=== PATIENT | female | born 1985 | race Caucasian/White ===

== ENCOUNTER 2023-10-13 00:27 | Observation (INO) | payer OTHER, SELFPAY ==
[2023-10-13] VITALS (17 sets, daily range): BP systolic 93–130; BP diastolic 53–84; PULSE 49–78; RESP 12–18; TEMP 36.5–37.1; O2SAT 97–100; BMI 20.5; BMI 21.6
--- NOTE | 2023-10-13 | PATH_ITS ---
[facility] Accession Number: [id number] No. of containers..01 Tissue . 01 Material submitted: . appendix - APPENDIX . 01 Diagnosis: APPENDIX, APPENDECTOMY: Acute suppurative appendicitis with perforation and serositis. Negative for dysplasia and malignancy. [facility] 10/16/2023 1014 Local . 01 Electronically signed: . Jonna Hanson MD, Pathologist NPI- [id number] . 01 Gross description: . Received in formalin, labeled with two identifiers and appendix, is a vermiform appendix measuring 9.2 cm in length and up to 1.2 cm in diameter with red-brown, roughened serosa and adherent material consistent with exudate. A full-thickness defect is identified measuring 0.7 cm in greatest dimension. The mesoappendix extends out to 1.7 cm. The margin is inked blue. Sectioning reveals the lumen to range from 0.2 cm to 0.4 cm in diameter with red-brown semisolid material. The hernandes average 0.4 cm thick with no lesions grossly identified. Supervisor Cellars sections to include the margin, one-half of the bisected distal tip, and cross section with area of defect are submitted in cassette A1. ([id number]) /FRR 10/14/2023 1701 Local . 01 Pathologist provided ICD-10: K35.80 . 01 CPT . 857469 Specimen Comment: A courtesy copy of this report has been sent to [phone] Performed at: [address] [facility] [address] [address], [place], [place] [id number] MD Adam Sharif MD Phone: [phone]
--- NOTE | 2023-10-13 01:33 | ED_ITS ---
HPI - Female Genitourinary General Chief complaint: Urogenital-Female Stated complaint: kidney pain Time Seen by Provider: 10/13/23 01:33 Source: patient Mode of arrival: Ambulatory History of Present Illness HPI Narrative: Patient is a 38-year-old female presenting today with abdominal pain. She reports that she was having some gastroenteritis like symptoms nausea vomiting diarrhea earlier in the week. She was given Cipro thought to be for traveler's diarrhea. She reports that diarrhea has improved however she has pretty intense abdominal pain. And now she reports pretty severe kidney pain as well. No painful frequent urination. She has not actually had fever. No other symptoms. Patient History Substance Use Type: does not use Exam Initial Vital Signs Initial Vital Signs: Vital Signs Temperature 98.4 F 10/13/23 00:36 Pulse Rate 59 L 10/13/23 00:36 Respiratory Rate 18 10/13/23 00:36 Blood Pressure 112/61 10/13/23 00:36 Pulse Oximetry 100 10/13/23 00:36 Oxygen Delivery Method Room Air 10/13/23 00:36 GENERAL: Alert 38-year-old female appears to not feel well and in no acute distress. HEENT: Head atraumatic,EOMI, pupils reactive, face symmetric, moist mucous membranes CARDIOVASCULAR: Regular rate and rhythm without murmurs, rubs or gallops. RESPIRATORY: Breath sounds equal bilaterally, no wheezes rales or rhonchi. ABDOMEN: Soft, tender across lower abdomen both right and left size having bilateral rebound mild guarding : No CVA tenderness EXTREMITIES: Normal range of motion, no clubbing or edema. Neurovascularly intact NEUROLOGICAL: Alert and oriented x4.Normal gait and speech. Cranial nerves II through XII grossly intact. SKIN: Warm, dry, no laceration, no petechiae, no rashes or lesions. Course Orders Ordered: ED Orders 10/13/23 01:00 Complete Blood Count AUTO DIFF Stat Comprehensive Metabolic Panel Stat Lactate (Lactic Acid) Stat Lipase Stat 10/13/23 01:38 CT abdomen pelvis w con Stat Ondansetron HCl (Ondansetron 4 Mg/2 Ml Inj) 4 mg IV NOW PRN PRN Reason: Nausea And Vomiting Ondansetron HCl (Ondansetron 4 Mg Odt) 4 mg SL NOW PRN PRN Reason: Nausea And Vomiting Discontinued Medications Sodium Chloride (Normal Saline 0.9%) 1,000 mls @ 1,000 mls/hr IV BOLUS ONE Stop: 10/13/23 02:37 Last Infusion: 10/13/23 03:33 Dose: Infused Documented By: Admin: 10/13/23 02:22 Dose: 1,000 mls/hr Documented By: ERON Piperacillin Sod/Tazobactam (Sod 4.5 gm/ Sodium Chloride) 100 mls @ 200 mls/hr IV NOW ONE Stop: 10/13/23 03:23 Last Infusion: 10/13/23 04:05 Dose: Infused Documented By: Admin: 10/13/23 03:33 Dose: 200 mls/hr Documented By: ERON Ketorolac Tromethamine (Ketorolac 30 Mg/Ml Vial) 30 mg IV NOW ONE Stop: 10/13/23 01:39 Last Admin: 10/13/23 02:20 Dose: 30 mg Documented By: ERON Ondansetron HCl (Ondansetron 4 Mg/2 Ml Inj) 4 mg IV NOW ONE Stop: 10/13/23 01:39 Last Admin: 10/13/23 02:21 Dose: Not Given Documented By: ERON Vital Signs Vital signs: Vital Signs - 8 hr 10/13/23 00:36 Temperature 98.4 F Pulse Rate 59 L Respiratory Rate 18 Blood Pressure 112/61 Pulse Oximetry 100 Oxygen Delivery Method Room Air MDM - Female Genitourinary Lab Data 10/13/23 01:00 10/13/23 01:00 Labs: Lab Results 10/13/23 Range/Units 01:00 WBC 8.1 (4.5-11.0) X10^3/uL RBC 3.98 L (4.0-5.2) X10^6/uL Hgb 12.1 (12.0-16.0) g/dL Hct 35.3 L (36-46) % MCV 88.7 (80-100) fL MCH 30.4 (26-34) PG MCHC 34.2 (30-36) % RDW 13.0 (11.6-14.8) % Plt Count 245 (150-400) X10^3/uL Neut % (Auto) 67.4 (50-75) % Lymph % (Auto) 22.1 L (25-40) % Steele % (Auto) 8.3 (3-14) % Eos % (Auto) 1.9 L (2-4) % Baso % (Auto) 0.3 (0-2) % Neut # (Auto) 5500 (7459-7895) /uL Lymph # (Auto) 1800 (8687-9690) /uL Steele # (Auto) 700 (0-900) /uL Eos # (Auto) 200 (0-450) /uL Baso # (Auto) 0 (0-100) /uL Sodium 131 L (137-145) mmol/L Potassium 3.7 (3.4-5.1) mmol/L Chloride 101 (98-107) mmol/L Carbon Dioxide 26 (22-32) mmol/L BUN 9 (7-17) mg/dL Creatinine 0.85 (0.52-1.04) mg/dL Estimated GFR > 60 (>60) mL/min BUN/Creatinine Ratio 10.6 (6-22) Glucose 113 H (70-100) mg/dL Lactate 0.8 (0.7-2.1) mmol/L Calcium 9.3 (8.4-10.2) mg/dL Total Bilirubin 1.1 (0.2-1.3) mg/dL AST 19 (14-36) IU/L ALT 11 (<35) IU/L Alkaline Phosphatase 41 (38-126) U/L Total Protein 7.2 (6.3-8.2) g/dL Albumin 4.1 (3.5-5.0) g/dL Globulin 3.1 (1.7-4.1) g/dL Albumin/Globulin Ratio 1.3 (1.0-2.8) Lipase 59 (23-300) U/L Urine Dip Bedside Urine Glucose Negative Bedside Urine Bilirubin - Negative Bedside Urine Ketone - Negative Urine Specific [place] 1.010 Bedside Urine Occult Blood - Negative Bedside Urine pH 6.0 Bedside Urine Urobilinogen - Negative Bedside Urine Nitrite - Negative Bedside Urine Leukocytes - Negative Esterase Imaging Data CT scan - abdomen/pelvis: Radiologist's Impression: Preliminary report findings compatible with acute appendicitis. No periappendiceal focal drainable collection or pneumoperitoneum. IUD within uterus which appears malpositioned with side prongs penetrating the myometrium. Recommend gynecologic consulted he chin with pelvic ultrasound MDM Narrative Medical decision making narrative: Patient is a healthy 38-year-old female who presents today with abdominal pain and discomfort ongoing for the last. He has had some nausea vomiting got better and now she feels like she is pain in her kidneys. No painful frequent urination. Urinalysis is negative Blood work 8.1 hemoglobin 12.1 hematocrit 35.3 platelets 245 No change electrolytes creatinine is stable at 0.85 glucose is 113 Bilirubin AST and ALT are within normal limits lipase is negative CT does show acute appendicitis I did discuss options with patient in regards to antibiotic conservative management versus surgery. They are leaning more towards surgery. She reports that they are leaving next week to go to [place] for then 3-[address] Rivera updated on patient's symptoms and test results along with patient wishes of having surgery Discharge Plan Departure Patient Disposition: Admitted as Observation Clinical Impression: Acute appendicitis Admit Date/Time: 10/13/23 03:25 Admit Provider: Samuel Rivera
--- NOTE | 2023-10-13 01:38 | DI.CT.S_ITS ---
PROCEDURE: CT ABDOMEN PELVIS W CON INDICATIONS: Lower abdominal pain [id number] TECHNIQUE: After the administration of intravenous contrast, axial sections acquired from the lung bases to the pubic symphysis. Coronal and sagittal reformats were performed. For radiation dose reduction, the following was used: automated exposure control, adjustment of mA and/or kV according to patient size. COMPARISON: None. FINDINGS: Image quality: Diagnostic. Lower Chest: No significant findings. ABDOMEN: Liver: No solid mass. Gallbladder: No radiopaque gallstones or wall thickening. Biliary ducts: No biliary dilation. Pancreas: No ductal dilation. Spleen: Size is within normal limits. Adrenal Glands: No adrenal nodules. Kidneys and Ureters: No hydronephrosis. No solid mass. No complex renal cystic lesion which requires follow up. Stomach and Bowel: The appendix is dilated, with a diffusely thickened wall. A short segment of the wall demonstrates decreased enhancement. No adjacent abscess. Peritoneum: No abnormal intraperitoneal fluid. No free air. Ventral Wall: No significant ventral hernia. Abdominal Nodes: No retroperitoneal or mesenteric adenopathy by size criteria. Vessels: Aorta and inferior vena cava are normal in size. PELVIS: Pelvic Organs: IUD is improperly positioned within the endometrium, with the arms extending into the myometrium. Bladder: No bladder wall thickening, accounting for underdistention. Pelvic Nodes: No enlarged lymph nodes. Miscellaneous: No inguinal hernias are seen. Bones: No aggressive osseous abnormality. IMPRESSION: Non perforated acute appendicitis. IUD is improperly positioned. Recommend replacement. Agree with preliminary report. Dictated by: Amaury Melgar M.D. on 10/13/2023 at 8:03 Approved by: Amaury Melgar M.D. on 10/13/2023 at 8:06
[2023-10-13 02:03] LABS: Alanine Aminotransferase 11 IU/L (<35); Albumin 4.1 g/dL (3.5-5.0); Albumin Globulin Ratio 1.3 (1.0-2.8); Alkaline Phosphatase 41 U/L (38-126); Aspartate Aminotransferase 19 IU/L (14-36); BUN Creatinine Ratio 10.6 (6-22); Bilirubin Total 1.1 mg/dL (0.2-1.3); Blood Urea Nitrogen 9 mg/dL (7-17); Calcium 9.3 mg/dL (8.4-10.2); Carbon Dioxide 26 mmol/L (22-32); Chloride 101 mmol/L (98-107); Estimated Glomerular Filt Rate > 60 mL/min (>60); Globulin 3.1 g/dL (1.7-4.1); Glucose 113 mg/dL (70-100); HEMOLYSIS < 15 (0-50); Lipase 59 U/L (23-300); Potassium 3.7 mmol/L (3.4-5.1); Sodium 131 mmol/L (137-145); Total Protein 7.2 g/dL (6.3-8.2)
[2023-10-13 02:04] LABS: Lactate (Lactic Acid) 0.8 mmol/L (0.7-2.1)
[2023-10-13 02:06] LABS: Add Manual Diff / Slide Review NO; Basophils Absolute Auto 0 /uL (0-100); Basophils Percent Auto 0.3 % (0-2); Eosinophils Absolute Auto 200 /uL (0-450); Eosinophils Percent Auto 1.9 % (2-4); Hematocrit 35.3 % (36-46); Hemoglobin 12.1 g/dL (12.0-16.0); Lymphocytes Absolute Auto 1800 /uL (1100-4500); Lymphocytes Percent Auto 22.1 % (25-40); Mean Corpuscular HGB Conc 34.2 % (30-36); Mean Corpuscular Hemoglobin 30.4 PG (26-34); Mean Corpuscular Volume 88.7 fL (80-100); Monocytes Absolute Auto 700 /uL (0-900); Monocytes Percent Auto 8.3 % (3-14); Neutrophils Absolute Auto 5500 /uL (1500-7000); Neutrophils Percent Auto 67.4 % (50-75); Platelet Count 245 X10^3/uL (150-400); Red Blood Cell Count 3.98 X10^6/uL (4.0-5.2); White Blood Cell Count 8.1 X10^3/uL (4.5-11.0)
[2023-10-13] MEDS: KETOROLAC 30 MG/ML VIAL IV ×2 (02:20→17:42)
[2023-10-13] MEDS: SODIUM CHLORIDE 0.9% 1,000 ML 1000 ML IV (02:22)
[2023-10-13] MEDS: PIPERACILLIN/TAZO 4.5 GM in SODIUM CHLORIDE 0.9% 100 ML IV (03:33)
[2023-10-13] MEDS: DEXTROSE 5%-0.45% NS 1,000 ML 100 ML IV (08:58)
[2023-10-13] MEDS: PIPERACILLIN/TAZO 3.375 GM in SODIUM CHLORIDE 0.9% 100 ML IV ×2 (08:58→16:28)
--- NOTE | 2023-10-13 10:30 | CM.DANOTE ---
Discharge Planning/Care Management CM Discharge Assessment Start: 10/13/23 08:56 Freq: Status: Active Protocol: Document 10/13/23 10:25 TASHA (Rec: 10/13/23 10:30 TASHA [id number]) Discharge Planning Assessment Assigned Sandblaster Paint Sprayer SOCORRO Garcia DPOA/Assigned Designee Name Deric Goodman, spouse Contact Information [phone] Advance Directives? No History Provided By Patient,Significant Other, Medical Record Prior Living Arrangements House Household Members spouse,children Type of transporation used prior to Drives own vehicle admit Independent with ADL's Yes Is patient alert and oriented? Yes Barriers to Discharge No Comment Overall healthy 38 yo F, visiting from out of state. Indp and active at baseline, scheduled for lap appy today with Dr Rivera. No needs anticipated from this CM team. Supportive spouse at bedside and available to assist patient throughout her recovery. Discharge Plan Home Transportation Arrangement Spouse Referrals Initiated None needed
--- NOTE | 2023-10-13 13:53 | P.HP_ITS ---
History of Present Illness History of Present Illness Date Patient Seen: 10/13/23 Time Patient Seen: 13:53 Chief complaint: kidney pain Narrative: Ms. Goodman is a healthy 38-year-old woman admitted to [facility] with acute appendicitis. Several days of vague abdominal discomfort presumed to be gastroenteritis. She was started on a course of ciprofloxacin but failed to improve. Pain became clearly lower abdominal more intense in nature and she presented to the hospital yesterday for further evaluation. Upon arrival afebrile, without leukocytosis, CT abdomen pelvis demonstrates an inflamed dilated appendix without abscess. No prior abdominal surgery. No family history of anesthetic or bleeding complication [facility] Social History household members: spouse and children Smoking Status: Never smoker Meds Home Medications and Allergies Home Medications Medication Instructions Recorded Confirmed Type No Known Home Medications 10/13/23 10/13/23 History Allergies Allergy/AdvReac Type Severity Reaction Status Date / Time codeine AdvReac Vomiting Verified 10/13/23 04:32 Exam Vital Signs (past 8 hours): - 10/13/23 07:58 10/13/23 08:00 10/13/23 11:58 Temperature 98.0 F Pulse Rate 62 Respiratory Rate 18 Blood Pressure 95/53 L Pulse Oximetry 99 100 97 Oxygen Delivery Method Room Air Room Air Oxygen Flow Rate 10/13/23 12:00 Temperature 97.9 F Pulse Rate 73 Respiratory Rate 18 Blood Pressure 93/56 L Pulse Oximetry 100 Oxygen Delivery Method Oxygen Flow Rate 0 Oxygen Delivery Method Room Air Oxygen Flow Rate 0 Narrative Exam Narrative: General adult woman alert oriented no acute distress Chest nonlabored respiration Abdomen tender right and lower left quadrant no peritonitis Extremities warm well perfused Objective Labs 10/13/23 01:00 10/13/23 01:00 Labs: Laboratory Results - last 24 hr 10/13/23 01:00 WBC 8.1 RBC 3.98 L Hgb 12.1 Hct 35.3 L MCV 88.7 MCH 30.4 MCHC 34.2 RDW 13.0 Plt Count 245 Neut % (Auto) 67.4 Lymph % (Auto) 22.1 L Edgar % (Auto) 8.3 Eos % (Auto) 1.9 L Baso % (Auto) 0.3 Neut # (Auto) 5500 Lymph # (Auto) 1800 Edgar # (Auto) 700 Eos # (Auto) 200 Baso # (Auto) 0 Sodium 131 L Potassium 3.7 Chloride 101 Carbon Dioxide 26 BUN 9 Creatinine 0.85 Estimated GFR > 60 BUN/Creatinine Ratio 10.6 Glucose 113 H Lactate 0.8 Calcium 9.3 Total Bilirubin 1.1 AST 19 ALT 11 Alkaline Phosphatase 41 Total Protein 7.2 Albumin 4.1 Globulin 3.1 Albumin/Globulin Ratio 1.3 Lipase 59 Assessment & Plan Assessment and plan (1) Acute appendicitis: Problem details: 38-year-old woman with symptoms and radiographic findings consistent with acute uncomplicated appendicitis. We discussed the management of appendicitis including both antibiotic therapy only versus appendectomy. We reviewed the operative risks including hemorrhage, infection, damage to surrounding structure, version open. Following discussion her preference is to proceed with surgery. Overview of a laparoscopic appendectomy was reviewed. Questions have been answered and she is in agreement with this plan. NPO IV fluids IV Zosyn Laparoscopic appendectomy Qualifiers: Acute appendicitis type: unspecified acute appendicitis type Qualified Code(s): K35.80 - Unspecified acute appendicitis Status: Acute Time-Based Coding :: [TOTAL MINUTES] spent with patient and on the chart (including review of chart, obtaining history, exam, reviewing outside data, placing orders, documenting exam and treatment plan, and counseling patient) on [DATE].
[2023-10-13] MEDS: LACTATED RINGERS 1,000 ML 42 ML IV (15:39)
[2023-10-13] MEDS: SCOPOLAMINE 1 PATCH TOP (16:01)
--- NOTE | 2023-10-13 16:40 | SUR.OPER ---
Supine on padded OR bed, head on pillow, right arm secured on padded arm board at <90 degrees abduction,left arm padded and tucked, legs uncrossed, safety belt at thigh, tape over blanket over lower legs.
--- NOTE | 2023-10-13 17:11 | PM.OP.1 ---
Operative Date/Time/Diagnoses Date of procedure: 10/13/23 Time of procedure: 17:11 Pre-op diagnosis: Acute appendicitis Post-op diagnosis: same Procedure & Clinicians Procedure: Laparoscopic appendectomy Same procedure as scheduled: Yes Indications: 38-year-old woman symptoms and radiographic findings consistent with acute uncomplicated appendicitis. Surgeon: Samuel Rivera Click Yes if Unassisted: Yes Anesthesia Type: General Operative Notes Findings: Acute non perforated appendicitis Simple/serous fluid within the pelvis 100 mL Specimen(s): other (Appendix) Estimated Blood Loss (mL): 20 Procedure in detail: Patient was brought to the operating room placed supine on the table. Bilateral lower extremity compression devices were applied. Anesthesia was induced and they intubated with an endotracheal tube. They received 3.375 g of Zosyn prior to skin incision. The left arm was tucked and appropriately padded. They were prepped and draped in sterile fashion. Time-out was performed. An infraumbilical incision was made the umbilical stalk was grasped and elevated and incision was made and the abdomen was entered atraumatically. A 12 mm balloon trocar was then placed through the incision and pneumoperitoneum of 14 mm Hg was established. The scope was then inserted and the abdomen inspected, there was no evidence of injury upon entry. Two 5 mm ports were placed under direct visualization, one in the left lower quadrant and second in the lower midline. A thorough laparoscopic evaluation was performed inspecting all four quadrants. The patient was then tilted right side up. The small bowel was then swept to the upper aspect of the abdomen. The tenie were followed to the base of the cecum where the appendix was identified. The appendix was was mobilized. It was acutely inflamed but not perforated. The appendix was grasped and a window within the mesentery was made at the base of the appendix using the [place] dissector with care to avoid injuring the cecum. The mesoappendix was then divided using the endo-stapler with a staple length of 2.5 mm-white load. The mesenteric staple line was inspected for hemostasis. The appendix was then amputated flush at the cecum using the endo-stapler blue load. The specimen was retrieved using a endoscopic retrieval bag through the 10 mm infra-umbilical port. The right paracolic gutter and the pouch of Beto were irrigated The 5 mm ports were then removed under direct visualization. The umbilical fascial incision was closed with 0 Vicryl in a figure-eight fashion. The skin wounds were irrigated and closed with 4-0 Monocryl followed by the application of Dermabond. Sponge instrument count at the end of the operation was correct. The patient tolerated procedure well was extubated and transferred to the postoperative care unit in stable condition. Complications: none Post-operative Condition: stable Disposition: Acute Care
[2023-10-13] MEDS: OXYCODONE IR 5 MG TABLET PO (17:40)
[2023-10-13] MEDS: ONDANSETRON 4 MG/2 ML INJ IV (17:41)
--- NOTE | 2023-10-13 18:26 | PC.NURSE ---
Verbally told by PACU nurse during report phone call that an anesthesiologist administered 30mg IV Ketorolac at roughly 1750 with a Pyxis override. Medication administration not scanned in EMAR, this RN logged medication administration as PACU medication.
--- NOTE | 2023-10-13 20:48 | CM.DANOTE ---
Discharge Planning/Care Management CM Discharge Assessment Start: 10/13/23 08:56 Freq: Status: Active Protocol: Document 10/13/23 10:25 TASHA (Rec: 10/13/23 10:30 TASHA [id number]) Discharge Planning Assessment Assigned Fire Management Specialist SOCORRO Garcia DPOA/Assigned Designee Name Deirc Goodman, spouse Contact Information [phone] Advance Directives? No History Provided By Patient,Significant Other, Medical Record Prior Living Arrangements House Household Members spouse,children Type of transporation used prior to Drives own vehicle admit Independent with ADL's Yes Is patient alert and oriented? Yes Barriers to Discharge No Comment Overall healthy 38 yo F, visiting from [place]. Indp and active at baseline, scheduled for lap appy today with Dr Rivera. No needs anticipated from this CM team. Supportive spouse at bedside and available to assist patient throughout her recovery. Discharge Plan Home Transportation Arrangement Spouse Referrals Initiated None needed
--- NOTE | 2023-10-13 20:49 | PC.NURSE ---
Discharge: Patient w/ discharge orders. Is feeling much better after getting up to ac floor from PACU. Ambulated well w/, denies n/v or pain or feeling dizzy while ambulating. All discharge paper work explained to patient and given to. Prescriptions given to and picked up. Night nurse evaluated patient and agrees w/ discharge. IV removed by SLD INCLUSION TEACHER.
--- NOTE | 2023-10-20 07:09 | PC.NURSE ---
Late entry: Piperacillin infusion initiated at 0858 complete at 1259.
== END 2023-10-13 21:00 | disposition home or self-care (01) ==
LOC: ED 03:24 → AC 03:26
PROVIDERS: Admitting Provider Surgery; Emergency Provider Emergency Medicine; Referring Provider Emergency Medicine; Visit Provider Surgery
PROC: 0DTJ4ZZ Resection of Appendix, Percutaneous Endoscopic Approach (ICD-10-PCS; CPT 44970; principal; 2023-10-13 15:30)
DX: K35.32 Acute appendicitis with perforation, localized peritonitis, and gangrene, without abscess (principal)
CPT/HCPCS: 44970; 36415; 74177; 80053; 81003; 83605; 83690; 85025; 96361; 96365; 96366; 96375; 96376; 99222; 99284; G0378; J0330; J1100; J1885; J2250; J2405; J2543; J2704; J3010; Q9967